=== PATIENT | male | born 1975 | race Caucasian/White ===

== ENCOUNTER 2018-11-13 06:50 | Day surgery (SDC) | payer BC ==
[2018-11-12 09:29] VITALS: BMI 26.1
[2018-11-13 08:10] LABS: #Basophils 0.1 thou/uL (0.0-0.2); #Eosinphils 0.1 thou/uL (0.0-0.7); #Monocytes 0.8 thou/uL (0.11-0.59); %Basophils 1.1 % (0.0-1.0); %Eosinophils 1.2 % (0.0-10.0); %Monocytes 9.7 % (0.0-10.0); Hemoglobin 17.4 g/dL (14.0-18.0); Mean Corpuscular HGB CONC 33.4 g/dL (32.0-36.0); Mean Corpuscular Hemoglobin 32.2 pg (27.0-31.0); Mean Corpuscular Volume 96.5 fL (78.0-98.0); Platelet Count 205 thou/uL (130-400); RBC Distribution Width 12.5 % (11.5-14.5); Red Blood Cell (RBC) Count 5.39 mill/uL (4.70-6.10); White Blood Cell (WBC) Count 7.9 thou/uL (4.8-10.8)
[2018-11-13] MEDS ORDERED: Vancomycin HCl 1.5 GM in Sodium Chloride 0.9% 250 ML 300 ML IVPB SCH (08:15)
[2018-11-13 08:28] LABS: Anion Gap 10 mmol/L (10-20); BUN (Urea Nitrogen) 13 mg/dL (8.9-20.6); Calc. Creatinine Clearance 110 mL/min (70-130); Calcium 9.5 mg/dL (7.8-10.44); Carbon Dioxide 28 mmol/L (22-29); Chloride 106 mmol/L (98-107); Estimated GFR-MDRD 68; Glucose 97 mg/dL (70-105); Potassium 4.5 mmol/L (3.5-5.1); Sodium 139 mmol/L (136-145)
[2018-11-13] MEDS ORDERED: Fentanyl 100 MCG/2 ML VIAL ONE ×2 (08:31→11:06)
[2018-11-13] MEDS ORDERED: Midazolam HCl 2 mg/2 ml Vial ONE (08:31)
[2018-11-13] MEDS ORDERED: Zolpidem Tartrate 5 MG TAB PO PRN (08:35)
[2018-11-13] MEDS ORDERED: Promethazine HCl 25 MG/ML VIAL IM PRN (08:35)
[2018-11-13] MEDS ORDERED: Ondansetron PF 4 MG/2 ML Vial IVP PRN (08:35)
[2018-11-13] MEDS ORDERED: traMADol HCl 50 MG TAB PO PRN ×2 (08:35)
[2018-11-13] MEDS ORDERED: Ropivacaine 0.2% 550 ML 550 ML NERVE BLCK SCH (08:35)
[2018-11-13] MEDS ORDERED: HYDROcodone/Acetaminophen 10/325 mg Tablet PO PRN ×2 (08:35)
[2018-11-13] MEDS ORDERED: Fentanyl 100 MCG/2 ML VIAL IV PRN (08:36)
[2018-11-13] MEDS ORDERED: Ropivacaine 0.5% HCl/PF (150 MG/30 ML VIAL) ONE (10:09)
[2018-11-13] MEDS ORDERED: Ropivacaine 0.2% HCl/PF (40 MG/20 ML VIAL) ONE (10:09)
[2018-11-13] MEDS ORDERED: Glycopyrrolate 0.2 MG/ML 5 ML SYRINGE ONE (10:39)
[2018-11-13] MEDS ORDERED: PHENYLEPHRINE-NS 100 MCG/ML 10 ML SYRINGE ONE (10:39)
[2018-11-13] MEDS ORDERED: Lidocaine 1% PF 5 ML VIAL ONE (10:39)
[2018-11-13] MEDS ORDERED: Rocuronium Bromide 10 MG/ML (10ML VIAL) ONE (10:39)
[2018-11-13] MEDS ORDERED: PROPOFOL 200 MG/20 ML VIAL ONE (10:39)
[2018-11-13] MEDS ORDERED: diphenhydrAMINE 50 MG/ML VIAL ONE (10:45)
[2018-11-13] MEDS ORDERED: Ketorolac Tromethamine 30 MG/ML VIAL IVP SCH (12:00)
[2018-11-13] MEDS ORDERED: HYDROcodone/Acetaminophen 5/325 mg Tablet ONE (12:01)
[2018-11-13] MEDS ORDERED: Ondansetron ODT 4 MG TAB ONE (12:27)
[2018-11-13] MEDS ORDERED: Metoclopramide HCl 10 MG/2 ML VIAL ONE (12:27)
--- NOTE | 2018-11-13 12:43 | OP ---
DATE OF PROCEDURE: 11/13/2018 PREOPERATIVE DIAGNOSIS: Left shoulder subscap tear with biceps tendon instability secondary to this. POSTOPERATIVE DIAGNOSIS: Left shoulder subscap tear with biceps tendon instability secondary to this. PROCEDURE PERFORMED: Left open subscap repair as well as open biceps tenodesis. MEASUREMENT DEPARTMENT CHIEF CLERK: Oskar Lawrence PA-C. BLOOD LOSS: 30. ANESTHESIA: He had a general anesthetic. He had a preop block. IMPLANTS: We used one triple loaded titanium rotator cuff anchor. We used one 7 x 23 BioComposite Bio-Tenodesis screw. DISPOSITION: He did go to recovery room in stable condition. INDICATIONS: This is a 43-year-old male, who has been having problems with pain and weakness on internal rotation of the arm. He was found on MRI scan to have some significant interstitial tearing of the subscapularis as well as tearing at the very top portion of this leading to biceps sling instability and biceps tendon pain. At this time, he opted to have surgery. DESCRIPTION OF PROCEDURE: After all verbal consent forms were explained and signed, he was taken to the operative room and at this time was given general anesthetic. He was placed in a modified beach chair position with all bony prominences well padded. We then prepped and draped the left shoulder and upper extremity in standard surgical fashion. Incision was made with 10 blade down through skin. Bovie was used to coagulate any brisk venous bleeding. The vein was easily found and was taken laterally with the deltoid as we opened up the deltopectoral interval. We then got down to the conjoint tendon. We swept the conjoint off the underlying subscapularis, placed our self-retaining retractors. At this time, the biceps tendon was found. We opened up the bicipital groove, cut all the biceps, tagged it, followed it up into the joint and used the scissors to cut it off at the labral insertion. We then were able to localize the torned portion of subscapularis. The very top 7 to 8 mm was torn, but as we opened this, we then got into the interstitial tear of the tendon and ended up that the top 50% of the tendon was torn off. Therefore, this area was cleared of any soft tissue. We then placed a triple loaded titanium anchor and ran the sutures in mattress fashion through the subscapularis for repair. These were tied and this gave us a nice anatomic subscap repair. We then sewed our biceps tendon with a FiberWire suture. We then cut off the intra-articular portion of this. We then placed our guide pin, reamed with a 7 mm reamer to a depth of 25 and placed a 7 x 23 BioComposite Bio-Tenodesis screw in standard fashion. Sutures were tied over this, so the screw could not back out. At this time, we then took our previously placed subscap repair sutures, went through the edge of the subscapularis, and then through bone posteriorly for a double row repair. These were tied over for each of the set of sutures and once this was done, we then thoroughly irrigated and dried. We then did place one [id number] suture to close the rotator interval. We then did irrigate some more. We allowed our deltopectoral flap to close upon itself. One Vicryl stitch was used to close this interval. Some 2-0 Vicryl and berna were used on skin. Bulky sterile dressing was applied. The patient was awakened, taken to recovery room in stable condition. All counts were correct at the end of the case and he did receive preoperative IV antibiotics. Job ID: [id number]
== END 2018-11-13 12:30 | disposition home or self-care (01) ==
LOC: SDC 06:50
PROVIDERS: ATTEND Orthopaedic Surgery
PROC: 0RHK04Z Insertion of Internal Fixation Device into Left Shoulder Joint, Open Approach (ICD-10-PCS; principal; 2018-11-13)
PROC: 0LS20ZZ Reposition Left Shoulder Tendon, Open Approach (ICD-10-PCS; principal; 2018-11-13)
PROC: 0LQ20ZZ Repair Left Shoulder Tendon, Open Approach (ICD-10-PCS; principal; 2018-11-13)
DX: M75.112 Incomplete rotator cuff tear or rupture of left shoulder, not specified as traumatic (principal); M25.312 Other instability, left shoulder; F90.9 Attention-deficit hyperactivity disorder, unspecified type; F17.210 Nicotine dependence, cigarettes, uncomplicated; Z79.899 Other long term (current) drug therapy
CPT/HCPCS: 80048; 85025; A4306; C1713; J1200; J2250; J2765; J2795; J3010; J3370; J7050; Q0162

== ENCOUNTER → 2018-11-14 | Day surgery (SDC) | payer BC ==
[~2018-11-14] MED LIST: Dexamethasone 4 mg/ml Vial ONE
== END ==
LOC: SDC 13:38
PROVIDERS: ATTEND Anesthesiology
DX: G89.18 Other acute postprocedural pain (principal); Z79.899 Other long term (current) drug therapy
CPT/HCPCS: J1100